=== PATIENT | male | born 1995 | race Caucasian/White ===

== ENCOUNTER 2019-06-17 12:54 | Emergency (ER) | payer SELFPAY ==
[2019-06-17 13:00] VITALS: BP 144/63; PULSE 80; RESP 16; TEMP 37; O2SAT 100
--- NOTE | 2019-06-17 13:53 | ED.NAVMDI ---
HPI - Nausea/Vomiting/Diarrhea General Chief complaint: Nausea/Vomiting/Diarrhea Stated complaint: fatigue/vomiting Source: patient Mode of arrival: ambulatory Limitations: no limitations History of Present Illness HPI Narrative: Patient is a 24-year-old male who presents complaining of nausea, vomiting, and diarrhea x2 to 3 weeks. Patient reports intermittently but reports 5 episodes of emesis today and diarrhea x2. Patient also reports weakness and fatigue as well as abdominal cramping. He denies taking [id number] medications for relief. Reports pain of 5/10 in abdomen at times. He also reports decreased p.o. intake. MD elicited complaint: nausea, vomiting, diarrhea and abdominal pain Related Data Home Medications Medication Instructions Recorded Confirmed No Home Medications 06/17/19 06/17/19 Allergies Allergy/AdvReac Type Severity Reaction Status Date / Time No Known Allergies Allergy Verified 06/17/19 13:06 Review of Systems Review of Systems: Narrative: CONSTITUTIONAL: Denies fever, chills, or sweats. Reports generalized fatigue EYES: Denies visual changes, redness, or discharge. ENT: Denies rhinorrhea, congestion, sore throat, or otalgia. CARDIOVASCULAR: Denies chest pain, palpitations, or edema. RESPIRATORY: Denies cough or dyspnea. GASTROINTESTINAL: Reports abdominal pain, nausea, vomiting, and diarrhea intermittently x2 to 3 weeks. GENITOURINARY: Denies dysuria or hematuria. SKIN: Denies rash or itching. MUSCULOSKELETAL: Denies back pain, joint pain, or myalgia. NEUROLOGIC: Denies headache, numbness, dizziness, or weakness. PSYCHIATRIC: Denies anxiety or depression. [facility] Past Medical History Medical History (Updated 06/17/19 @ 14:00 by SILVERIO Guallpa) No significant past medical history Surgical History Surgical History (Updated 06/17/19 @ 13:56 by SILVERIO Guallpa) No history of previous surgery Social History Social History (Updated 06/17/19 @ 13:57 by SILVERIO Guallpa) Smoking status: Never smoker Alcohol intake: current Alcohol use details: socially Substance use: never Gender identity (if verbalized by the patient): Male Exam Narrative: Exam Narrative: GENERAL: Well-appearing, well-nourished, and in no acute distress. HEAD: Normocephalic, atraumatic. EYES: EOMI. No redness or drainage. Conjunctiva are normal. ENT: Mucous membranes pink and moist. Nares clear. No rhinorrhea. TMs normal bilaterally. Throat normal. Uvula midline. NECK: AROM. Supple. No lymphadenopathy. CHEST: No respiratory distress. Clear to auscultation. HEART: Regular rate and rhythm. No murmur appreciated. Normal peripheral pulses. GI: Soft, generalized tenderness with palpation. No distention. Bowel sounds normal in all quadrants. NEURO: No focal deficits. Alert and oriented x3. Gait steady. PSYCH: Normal affect. No signs of depression or anxiety. Course Vital Signs Vital signs: Vital Signs Temperature 37.0 C 06/17/19 13:00 Pulse Rate 80 06/17/19 13:00 Respiratory Rate 16 06/17/19 13:00 Blood Pressure 144/63 H 06/17/19 13:00 Pulse Oximetry 100 06/17/19 13:00 Temperature 37.0 C 06/17/19 13:00 Pulse Rate 80 06/17/19 13:00 Respiratory Rate 16 06/17/19 13:00 Blood Pressure 144/63 H 06/17/19 13:00 Pulse Oximetry 100 06/17/19 13:00 Transfer Transfered to: [place] Transfer rationale: Higher level care, further evaluation Accepting physician: Dr. Sibley Transfer comments: Patient to be transferred furred to [facility] for further evaluation by private vehicle. Patient is stable for transfer by private vehicle at this time. MDM - Nausea/Vomiting/Diarrhea MDM Narrative Medical decision making narrative: Discussed with patient the need for further evaluation and testing because of length of illness. Patient agrees. Patient agrees with plan of care and reports that he will go to [facility] at this time. Daquan
== END 2019-06-17 13:54 | disposition short-term general hospital (02) ==
PROVIDERS: Emergency Provider Nurse Practitioner
DX: R11.2 Nausea with vomiting, unspecified (principal); R19.7 Diarrhea, unspecified; R10.9 Unspecified abdominal pain
CPT/HCPCS: 99212; G0463

== ENCOUNTER 2019-06-17 14:19 | Emergency (ER) | payer SELFPAY ==
--- NOTE | ~2019-06-17 | CT_ITS ---
EXAMINATION: CT abdomen pelvis w con DATE: 06/17/2019 18:11 INDICATION: Abdominal pain TECHNIQUE: Computed tomography (CT) of the abdomen and pelvis was performed with 100 mL Omnipaque-350 intravenous contrast. Automated exposure control and iterative reconstruction technique were employe d. The dose-length product was 337.60 mGy-cm. COMPARISON: None FINDINGS: Lung bases are clear. Heart size is normal. No pericardial or pleural effusion. Mild periportal edema . Liver is otherwise normal. Gallbladder, spleen, pancreas, bilateral adrenal glands and kidneys are normal. Bowels including the appendix are normal. Bladder is normal. No free intraperitoneal gas or f luid. No pathologically enlarged abdominal or pelvic lymphadenopathy. Small os acetabulum along the a nterosuperior right acetabulum and mild anterosuperior decreased right femoral head/neck offset with mild cystic change, both findings which could be seen in the setting of cam-type femoral acetabular i mpingement. A few scattered small bone islands. IMPRESSION: 1. Nonspecific mild periportal edema versus mild intrahepatic biliary ductal dilation. Correlate with liver function tests. Otherwise unremarkable CT of the abdomen and pelvis. Reviewed, dictated and finalized at location A. [employer] IMPRESSION: 1. Nonspecific mild periportal edema versus mild intrahepatic biliary ductal di lation. Correlate with liver function tests. Otherwise unremarkable CT of the a bdomen and pelvis.
[2019-06-17 15:11] VITALS: BP 131/66; PULSE 80; RESP 18; TEMP 36.9; O2SAT 100
[2019-06-17 15:27] LABS: Basophils Percent Auto 0.5 % (0.2-1.2); Eosinophils Absolute Auto 0.2 K/mm3 (0-0.3); Eosinophils Percent Auto 2.9 % (0-4.4); Hematocrit 42.2 % (42.0-52.0); Hemoglobin 14.3 g/dL (14.0-18.0); Immature Granulocyte Absolute 0.03 K/mm3 (0.00-0.031); Immature Granulocyte Percent A 0.4 % (0-0.5); Lymphocytes Absolute Auto 1.78 K/mm3 (0.9-3.2); Lymphocytes Percent Auto 21.3 % (18.3-44.2); Mean Corpuscular HGB Conc 33.9 g/dl (32-36); Mean Corpuscular Volume 85.6 fl (80-100); Mean Platelet Volume 10.7 fl (7.4-10.4); Monocytes Absolute Auto 0.7 K/mm3 (0.1-0.6); Monocytes Percent Auto 8.4 % (2.6-8.5); Neutrophils Absolute Auto 5.6 K/mm3 (1.3-6.7); Neutrophils Percent Auto 66.5 % (45.5-73.1); Platelet Count Result 273 k/mm3 (150-375); Red Blood Count 4.93 M/mm3 (4.6-6.20); Red Cell Distribution Width 12.3 % (11.5-14.5); White Blood Count 8.4 K/mm3 (4.5-10.0)
[2019-06-17 15:41] LABS: Alanine Aminotransferase 16 U/L (4-50); Albumin Level 4.6 g/dL (3.5-5.1); Alkaline Phosphatase 65 U/L (38-126); Aspartate Amino Transferase 23 U/L (17-59); Bilirubin,Total 0.4 mg/dL (0.2-1.3); Blood Urea Nitrogen 15 mg/dL (9-20); Calcium 9.7 mg/dL (8.4-10.2); Carbon Dioxide 27 mmol/L (22-30); Chloride 100 mmol/L (98-107); Estimated CRCL calculation 126 ml/min; Estimated Glomerular Filt Rate > 60; Glucose 94 mg/dL (75-110); Lipase 55 U/L (23-300); Potassium 4.1 mmol/L (3.4-5.0); Sodium 137 mmol/L (137-145)
--- NOTE | 2019-06-17 16:46 | ED.ABDPAIN ---
HPI - Abdominal Pain General Chief Complaint: Abdominal Pain Stated Complaint: abdominal pain Time Seen by Provider: 06/17/19 16:45 History of Present Illness HPI narrative: Pt is a 24 y/o male who presents to the ED with c/o intermittent lower ABD pain for 2-3 weeks that has worsened in the last 4 days. He reports associated generalized weakness, N/V/D. He states that he had a fever 2 weeks ago when his Sx started. Pt denies dysuria. He did not take any pain medicine today. MD elicited complaint: abdominal pain (lower) Onset (ago): week(s) (2-3) Pain Consistency: intermittent Location: other (lower ABD) Associated symptoms: nausea, vomiting, diarrhea and fever Related Data Allergies Allergy/AdvReac Type Severity Reaction Status Date / Time No Known Allergies Allergy Verified 06/17/19 13:06 Review of Systems Review of Systems: All systems reviewed & are unremarkable except as noted in HPI and below Constitutional: Constitutional: Reports weakness (generalized) Gastrointestinal: Gastrointestinal: Reports abdominal pain, Reports diarrhea, Reports nausea and Reports vomiting Genitourinary: Genitourinary: Denies dysuria [facility] Past Medical History Medical History (Updated 06/17/19 @ 18:46 by Ahmet Fofana DO) Asthma Dislocation of right shoulder joint GERD (gastroesophageal reflux disease) Kidney stones Pneumonia Seizure Tear of deltoid ligament of left ankle Surgical History Surgical History No history of previous surgery Social History Social History Smoking status: Never smoker Alcohol intake: current Substance use: never Gender identity (if verbalized by the patient): Male Exam Narrative: Exam Narrative: APPEARANCE: No acute distress, nontoxic, resting in bed HEENT: Normocephalic, atraumatic, OMM RESPIRATORY: No respiratory distress, clear to auscultation bilaterally with no rhonchi wheezing or rales CARDIOVASCULAR: RRR s murmur ABDOMINAL: Soft, nondistended, diffusely tender to palpation, no rebound or guarding MUSCULOSKELETAl: Moves all extremities. No clubbing, cyanosis or edema. NEURO: Awake and alert. Following commands, speech normal, no focal deficits SKIN:: Warm, dry. Normal Color PSYCHIATRIC: Normal affect/mood Course Course Emergency Course: Did review CT scan. Patient with no elevation of LFTs bili is within normal limits. This time suspect questionable mild periportal edema Patient states that they are feeling much better at this time. States abdominal pain has resolved. Repeat abdominal exam shows the patient's abdomen to be soft and nontender. Discussed with patient results of workup and diagnosis. Discussed need for follow-up with primary care physician, reasons to return to the emergency department in proper use of medication. Patient understands and agrees to current treatment plan Vital Signs Vital signs: Vital Signs Temperature 98.4 F 06/17/19 15:11 Pulse Rate 80 06/17/19 15:11 Respiratory Rate 18 06/17/19 15:11 Blood Pressure 131/66 06/17/19 15:11 Pulse Oximetry 100 06/17/19 15:11 Temperature 98.4 F 06/17/19 15:11 Pulse Rate 80 06/17/19 15:11 Respiratory Rate 18 06/17/19 15:11 Blood Pressure 131/66 06/17/19 15:11 Pulse Oximetry 100 06/17/19 15:11 MDM - Abdominal Pain Lab Data Result diagrams: 06/17/19 15:20 06/17/19 15:20 Labs: Lab Results 06/17/19 06/17/19 06/17/19 Range/Units 15:20 15:20 16:56 WBC 8.4 (4.5-10.0) K/mm3 RBC 4.93 (4.6-6.20) M/mm3 Hgb 14.3 (14.0-18.0) g/dL Hct 42.2 (42.0-52.0) % MCV 85.6 (80-100) fl MCH 29.0 (26-34) pg MCHC 33.9 (32-36) g/dl RDW 12.3 (11.5-14.5) % Plt Count 273 (150-375) k/mm3 MPV 10.7 H (7.4-10.4) fl Immature Gran % (Auto) 0.4 (0-0.5) % Neut % (Auto) 66.5 (45.5-73.1) % Lymph % (Auto) 21.3 (18
[2019-06-17] MEDS: LACTATED RINGERS 1,000 ML 999 ML IV CONT (17:01)
[2019-06-17] MEDS: KETOROLAC 30 MG/ML VIAL (*BKC) IV PUSH (17:02)
[2019-06-17 17:35] LABS: Add Urine Microscopic? YES; Appearance Urine Clear (Clear); Bilirubin Urine Negative (Negative); Blood Urine Negative (Negative); Color Urine Yellow (Yellow); Glucose Urine UA Negative (Negative); Ketones Urine Negative (Negative); Leukocyte Esterase Ur Negative LEU/UL (Negative); Mucus Urine Rare /lpf; Nitrate Urine Negative (Negative); Protein Urine 1+ mg/dL (Negative); RBC Urine 0-2 /hpf (0-2); Urobilinogen Urine Negative mg/dL (<2.0); WBC Urine 0-3 /hpf
== END 2019-06-17 19:05 | disposition home or self-care (01) ==
PROVIDERS: Emergency Provider Emergency Medicine
DX: R10.30 Lower abdominal pain, unspecified (principal); R11.2 Nausea with vomiting, unspecified; J45.909 Unspecified asthma, uncomplicated; K21.9 Gastro-esophageal reflux disease without esophagitis; Z87.442 Personal history of urinary calculi
CPT/HCPCS: 36415; 74177; 80053; 81001; 83690; 85025; 96361; 96374; 99284; J1885; J7120; Q9967

== ENCOUNTER 2020-04-27 10:53 | Emergency (ER) | payer OTHER, SELFPAY ==
--- NOTE | ~2020-04-27 | XR_ITS ---
EXAMINATION: XR hand LT min 3V, XR finger 5th LT min 2V DATE: 04/27/2020 11:17 INDICATION: Nail injury to the left fifth digit TECHNIQUE: 1. Posteroanterior, oblique and lateral views of the left hand were obtained. 2. Posteroanterior, 2 oblique and lateral views of the left fifth digit were obtained. COMPARISON: None. FINDINGS: There is a metal nail which extends across the soft tissues palmar to the fifth proximal interphalang eal joint. No evident fracture fracture. Bone alignment is normal with flexion of the left fifth digi t. Joint spaces are normal. IMPRESSION: 1. Nail which is to passed to the soft tissues palmar to the left fifth proximal interphalangeal join t with no evident osseous abnormality. Reviewed, dictated and finalized at location [facility] [employer] IMPRESSION: 1. Nail which is to passed to the soft tissues palmar to the left fifth proxima l interphalangeal joint with no evident osseous abnormality.
[2020-04-27 11:06] VITALS: BP 150/88; PULSE 93; RESP 18; TEMP 36.7; O2SAT 100
[2020-04-27] MEDS: TETANUS,DIPHTHERIA,AC PERTUSSIS ADULT (0.5 ML) BOOSTRIX IM (11:34)
--- NOTE | 2020-04-27 11:34 | ED.GENADULT ---
HPI - General Adult General Chief complaint: Skin/Abscess/Foreign Body Stated complaint: nail in hand Time Seen by Provider: 04/27/20 10:54 Source: patient Mode of arrival: ambulatory Limitations: no limitations History of Present Illness HPI narrative: Patient is a 25-year-old male who presents with foreign body left fifth digit was using a nail gun when he discharged a nail through the palmar aspect of the proximal phalanx patient notes mild aching pain patient is unsure as to his tetanus status. Patient denies other injuries or complaints. Related Data Allergies Allergy/AdvReac Type Severity Reaction Status Date / Time No Known Allergies Allergy Verified 06/17/19 13:06 Review of Systems Review of Systems: All systems reviewed & are unremarkable except as noted in HPI and below PMFSH Past Medical History Medical History Asthma Dislocation of right shoulder joint GERD (gastroesophageal reflux disease) Kidney stones Pneumonia Seizure Tear of deltoid ligament of left ankle Surgical History Surgical History No history of previous surgery Social History Social History Smoking status: Never smoker Alcohol intake: current Substance use: never Gender identity (if verbalized by the patient): Male Exam Narrative: Exam Narrative: GENERAL: Well-appearing, well-nourished, and in no acute distress. HEAD: Normocephalic, atraumatic. EYES: PERRLA and EOMI. ENT: Nares clear, no rhinorrhea or epistaxis. Mucous membranes moist. EXTREMITIES: Normal range of motion. No edema. Through and through nail foreign body palmar surface proximal phalanx fifth digit left hand SKIN: Warm, dry, no rash. NEURO: No focal deficits. Alert and oriented x3. Neurovascularly intact PSYCH: Normal mood and affect. Course Course Emergency Course: Foreign body removed patient in the room in no distress neurovascularly intact pre and post procedure Vital Signs Vital signs: Vital Signs Temperature 98.1 F 04/27/20 11:06 Pulse Rate 93 04/27/20 11:06 Respiratory Rate 18 04/27/20 11:06 Blood Pressure 150/88 H 04/27/20 11:06 Pulse Oximetry 100 04/27/20 11:06 Temperature 98.1 F 04/27/20 11:06 Pulse Rate 93 04/27/20 11:06 Respiratory Rate 18 04/27/20 11:06 Blood Pressure 150/88 H 04/27/20 11:06 Pulse Oximetry 100 04/27/20 11:06 Procedures Foreign Body Removal Foreign Body #1: Foreign Body Removal Date: 04/27/20 Foreign Body Removal Time: 11:36 Time Out Performed: yes Site: left Description of foreign body: other (nail) Sedation/Analgesia: other (lidocaine difital block) Technique: manual removal Confirmed by:: radiograph Complications: none Post-procedure exam: awake, alert Neurovascular: normal distal pulse, normal capillary fill, distal light touch sensation intact, distal motor function normal and no signs of compartment syndrome Medical Decision Making MDM Narrative Medical decision making narrative: Patients injury or pain is consistent with musculoskeletal etiology. No signs of neurological or vascular compromise on exam. Compartments and tisues are soft without signs of compartment syndrome. Pain is felt appropriate for further evaluation on an outpatient basis. Foreign body removed finger was dressed with antibiotic ointment nonadhesive 4 x 4 and Coban. Placed on antibiotics for 5 days Vital Signs Vital Signs: Vital Signs Temperature 98.1 F 04/27/20 11:06 Pulse Rate 93 04/27/20 11:06 Respiratory Rate 18 04/27/20 11:06 Blood Pressure 150/88 H 04/27/20 11:06 Pulse Oximetry 100 04/27/20 11:06 Temperature 98.1 F 04/27/20 11:06 Pulse Rate 93 04/27/20 11:06 Respiratory Rate 18 04/27/20 11:06 Blood Pressure 150/88 H 04/27/20 11:06
[2020-04-27 11:46] VITALS: BP 138/72; PULSE 78; RESP 18; O2SAT 99
== END 2020-04-27 11:50 | disposition home or self-care (01) ==
PROVIDERS: Emergency Provider Family Medicine
DX: S61.247A Puncture wound with foreign body of left little finger without damage to nail, initial encounter (principal); J45.909 Unspecified asthma, uncomplicated; K21.9 Gastro-esophageal reflux disease without esophagitis; Z87.442 Personal history of urinary calculi; W29.4XXA Contact with nail gun, initial encounter; Z23 Encounter for immunization
CPT/HCPCS: 73130; 73140; 90471; 90715; 99283

== ENCOUNTER 2021-03-09 16:34 | Emergency (ER) | payer SELFPAY ==
--- NOTE | ~2021-03-09 | XR_ITS ---
XR hand RT min 3V 03/09/2021 17:01 INDICATION: Right hand pain after trauma PROCEDURE: 3 views right hand COMPARISON: No prior studies for comparison. FINDINGS: There is a marginal fracture involving the ulnar base of the fifth metacarpal. Mild soft ti ssue swelling.. No foreign bodies are identified. IMPRESSION: 1: Marginal fracture ulnar base right fifth metacarpal. Reviewed, dictated and finalized at location A.
[2021-03-09 16:44] VITALS: PULSE 94; RESP 17; TEMP 37; O2SAT 98
[2021-03-09 16:47] VITALS: BP 152/93
--- NOTE | 2021-03-09 17:00 | ED.UPPEXIN ---
HPI - Extremity Injury (Upper) General Chief Complaint: Extremity Injury, Upper Stated Complaint: hand inury Time Seen by Provider: 03/09/21 16:38 Source: patient Mode of arrival: ambulatory Limitations: no limitations History of Present Illness HPI narrative: This is a 26 year old male that presents to the ER for right hand injury sustained 4 days ago. Reports he punched a wall. Reports since he has had pain in the right hand. Worse with movement and relieved with rest and ibuprofen. He has not seen anyone yet for this injury. Denies decreased ROM or numbness. Related Data Allergies Allergy/AdvReac Type Severity Reaction Status Date / Time No Known Allergies Allergy Verified 07/27/20 15:10 Review of Systems Review of Systems: CONSTITUTIONAL: Denies fever MUSCULOSKELETAL: Reports joint pain, and myalgia. NEUROLOGIC: Denies numbness All systems reviewed & are unremarkable except as noted in HPI and below PMFSH Past Medical History Medical History (Updated 03/09/21 @ 17:32 by Nida Mart PA-C) Asthma Dislocation of right shoulder joint GERD (gastroesophageal reflux disease) Kidney stones Nausea and vomiting Pneumonia Seizure Tear of deltoid ligament of left ankle Surgical History Surgical History No history of previous surgery Social History Social History Smoking status: Former smoker Alcohol intake: current Alcohol use details: socially Substance use: never Gender identity (if verbalized by the patient): Male Exam Narrative: GENERAL: Well-appearing, well-nourished, and in no acute distress. HEAD: Normocephalic, atraumatic. EYES: EOMI. EXTREMITIES: Normal range of motion. Mild edema about the right hand metacarpal bones. Normal radial pulses. Normal sensation SKIN: Warm, dry, no rash. NEURO: No focal deficits. Alert and oriented x3. PSYCH: Normal mood and affect Course Vital Signs Vital signs: Vital Signs Temperature 98.6 F 03/09/21 16:44 Pulse Rate 94 03/09/21 16:44 Respiratory Rate 17 03/09/21 16:44 Pulse Oximetry 98 03/09/21 16:44 Temperature 98.6 F 03/09/21 16:44 Pulse Rate 94 03/09/21 16:44 Respiratory Rate 17 03/09/21 16:44 Blood Pressure 152/93 H 03/09/21 16:47 Pulse Oximetry 98 03/09/21 16:44 Procedures Orthopedic Splinting/Casting Injury #1: Splinting/Casting Date: 03/09/21 Splinting/Casting Time: 17:30 Side: right Upper Extremity Injury Location: hand Upper Extremity Immobilizer: ulnar gutter Splint: customized in ED OCL: ulnar gutter Pre-Procedure Neuro Vascular Exam: normal Post-Procedure Neuro Vascular Exam: normal MDM - Extremity Injury (Upper) MDM Narrative Medical decision making narrative: Patient presents to the ER for right hand injury sustained 4 days ago. He is neurovascularly intact. Right hand x-ray shows fracture at the ulnar base of the right fifth metacarpal. Patient was placed in an ulnar gutter. Will be given hand surgery for follow up. He was given warnings to return to the ER Imaging Data Radiologist's impression: ITS Impressions Hand X-Ray 03/09/21 17:02 IMPRESSION: 1: Marginal fracture ulnar base right fifth metacarpal. Critical Care Time Critical Care Time Critical Care Time: No Discharge Plan Discharge Clinical Impression: Fracture of fifth metacarpal bone of right hand Qualifiers: Encounter type: initial encounter Fracture type: closed Metacarpal location: base Fracture alignment: nondisplaced Qualified Code(s): S62.346A - Nondisplaced fracture of base of fifth metacarpal bone, right hand, initial encounter for closed fracture Patient Disposition: Home, Self-Care Condition: Stable Instructions: Hand Fracture (ED) Additional Instructions: Return to the emergency department if you experience fever, luz
[2021-03-09 17:50] VITALS: BP 142/95; PULSE 82; RESP 16; O2SAT 99
== END 2021-03-09 17:50 | disposition home or self-care (01) ==
PROVIDERS: Emergency Provider Emergency Medicine
DX: S62.346A Nondisplaced fracture of base of fifth metacarpal bone, right hand, initial encounter for closed fracture (principal); J45.909 Unspecified asthma, uncomplicated; K21.9 Gastro-esophageal reflux disease without esophagitis; Z87.442 Personal history of urinary calculi; Z87.891 Personal history of nicotine dependence; W22.09XA Striking against other stationary object, initial encounter
CPT/HCPCS: 29125; 73130; 99284